=== PATIENT | female | born 1995 | race Native Hawaiian/Other Pacific Islander ===

== ENCOUNTER 2017-11-10 11:05 | Emergency (ER) | payer SELFPAY ==
[2017-11-10 11:17] VITALS: BP 127/89
[2017-11-10 11:52] LABS: Bacteria,Urine 1+ /HPF (Negative); Bilirubin,Urine NEG (Negative); Blood,Urine NEG (Negative); Color,Urine Yellow (Yellow); Mucus,Urine FEW /HPF; Protein,Urine <15 mg/dL mg/dL (Negative); Urobilinogen,Urine < 2.0 mg/dL (<2.0); WBC,Urine < 1.0 /HPF (0.0-6.0)
--- NOTE | 2017-11-10 12:08 | Emergency Department Report ---
ED Female HPI - General Chief complaint: Urogenital-Female Stated complaint: ABDOMINAL PAIN- 16WEEKS Time Seen by Provider: 11/10/17 12:08 Source: patient, family, vp celebrity services Mode of arrival: Wheelchair Limitations: Language Barrier - History of Present Illness Initial comments: Interpretive service Patient presents to emergency department with the chief complaint wore abdominal pain that started this morning. The patient's approximate 16 weeks and is . Patient has no obstetrics care currently. Patient does endorse vaginal discharge that is odorous but denies concern for STDs. Patient denies any vaginal bleeding. Pain is inattentive pelvic area. Pain is intermittent. Denies any vaginal bleeding reports whitish. Discharge and has no concerns for STD. Patient says clinic in [place] confirmed her and she has records with her. She also states that she was having some nausea with some vomiting that has resolved. MD Complaint: vaginal discharge, pelvic pain -: This morning Location: suprapubic Radiation: non-radiating Severity: severe Severity scale (0 -10): 8 Quality: aching Consistency: intermittent Improves with: none Worsens with: none Are you Now?: Yes (16 weeks) Associated Symptoms: vaginal discharge, abdominal pain, nausea/vomiting. denies : vaginal bleeding, fever/chills, headaches, loss of appetite, dysuria, hematuria, rash, seizure, shortness of breath, syncope, weakness - Related Data Sexually active: Yes Previous Rx's Medication Instructions Recorded Last Taken Type Miconazole Nitrate [Monistat 3] 1 each VG QHS 3 Days #1 kit 11/10/17 Unknown Rx Vit No.130/Iron/Folic 1 each PO QAM 30 Days #30 tablet 11/10/17 Unknown Rx [ Tablet] metroNIDAZOLE [Flagyl] 500 mg PO Q12HR 7 Days #14 tab 11/10/17 Unknown Rx Allergies Allergy/AdvReac Type Severity Reaction Status Date / Time No Known Allergies Allergy Unverified 11/10/17 11:16 ED Review of Systems ROS: Stated complaint: ABDOMINAL PAIN- 16WEEKS Other details as noted in HPI Constitutional: denies: chills, fever Eyes: denies: eye pain, eye discharge, vision change ENT: denies: ear pain, throat pain Respiratory: denies: cough, shortness of breath, wheezing Cardiovascular: denies: chest pain, palpitations Endocrine: no symptoms reported Gastrointestinal: denies: abdominal pain, nausea, diarrhea Genitourinary: denies: urgency, dysuria, discharge Musculoskeletal: denies: back pain, joint swelling, arthralgia Skin: denies: rash, lesions Neurological: denies: headache, weakness, paresthesias Psychiatric: denies: anxiety, depression Hematological/Lymphatic: denies: easy bleeding, easy bruising ED Past Medical Hx - Past Medical History Previous Medical History?: Yes Additional medical history: hypotension - Surgical History Past Surgical History?: Yes Additional Surgical History: x1 - Family History Family history: hypertension - Social History Smoking Status: Never Smoker Substance Use Type: None - Medications Home Medications: Home Medications Medication Instructions Recorded Confirmed Last Taken Type Miconazole Nitrate [Monistat 3] 1 each VG QHS 3 Days #1 kit 11/10/17 Unknown Rx Vit No.130/Iron/Folic 1 each PO QAM 30 Days #30 tablet 11/10/17 Unknown Rx [ Tablet] metroNIDAZOLE [Flagyl] 500 mg PO Q12HR 7 Days #14 tab 11/10/17 Unknown Rx ED Physical Exam - General Limitations: Language Barrier General appearance: alert, in no apparent distress - Head Head exam: Present: atraumatic, normocephalic, normal inspection - Eye Eye exam: Present: normal appearance, PERRL, EOMI - ENT ENT exam: Present: normal exam, normal orophraynx, mucous membranes moist, TM's normal bilaterally, normal external ear exam - Neck Neck exam: Present: normal inspection, full ROM. Absent: tenderness, lymphadenopathy - Respiratory Respiratory exam: Present: normal lung sounds bilaterally. Absent: respiratory distress, chest wall tenderness - Cardiovascular Cardiovascular Exam: Present: normal rhythm, tachycardia, normal heart sounds. Absent: systolic murmur, diastolic murmur - GI/Abdominal GI/Abdominal exam: Present: soft, normal bowel sounds. Absent: distended, tenderness, guarding, rebound, rigid, organomegaly, mass, bruit, pulsatile mass - External exam: Present: normal external exam. Absent: erythema, swelling, lesions, lacerations, ecchymosis, bleeding Speculum exam: Present: vaginal discharge, cervical discharge. Absent: normal speculum exam, erythema, vaginal bleeding, foreign body, tissue, laceration Bi-manual exam: Present: normal bi-manual exam. Absent: cervical motion tendernes - Extremities Exam Extremities exam: Present: normal inspection, full ROM, normal capillary refill , other (No cce. + 2 pulses in all extremities, no neurovascular compromise). Absent: tenderness, pedal edema, joint swelling, calf tenderness - Back Exam Back exam: Present: normal inspection, full ROM, other (ambulates without any difficulties). Absent: tenderness, CVA tenderness (R), CVA tenderness (L), muscle spasm, paraspinal tenderness, vertebral tenderness, rash noted - Neurological Exam Neurological exam: Present: alert, oriented X3, normal gait - Psychiatric Psychiatric exam: Present: normal affect, normal mood - Skin Skin exam: Present: warm, dry, intact, normal color. Absent: rash ED Course Vital Signs 11/10/17 11/10/17 11:14 14:48 Temperature 98.2 F Pulse Rate 102 H 82 Respiratory 18 Rate Blood Pressure 127/89 O2 Sat by Pulse 100 Oximetry - Reevaluation(s) Reevaluation #1: 11/12/17 07:27 Patient had uneventful ED stay ED Medical Decision Making - Lab Data Result diagrams: 11/10/17 12:47 11/10/17 12:47 Lab Results 11/10/17 11/10/17 11/10/17 Range/Units 11:13 12:47 12:47 WBC 7.5 (4.5-11.0) K/mm3 RBC 3.44 L (3.65-5.03) M/mm3 Hgb 10.5 (10.1-14.3) gm/dl Hct 31.2 (30.3-42.9) % MCV 91 (79-97) fl MCH 31 (28-32) pg MCHC 34 (30-34) % RDW 13.5 (13.2-15.2) % Plt Count 271 (140-440) K/mm3 Lymph % (Auto) 17.8 (13.4-35.0) % Brown % (Auto) 5.0 (0.0-7.3) % Eos % (Auto) 2.7 (0.0-4.3) % Baso % (Auto) 0.5 (0.0-1.8) % Lymph # 1.3 (1.2-5.4) K/mm3 Brown # 0.4 (0.0-0.8) K/mm3 Eos # 0.2 (0.0-0.4) K/mm3 Baso # 0.0 (0.0-0.1) K/mm3 Seg Neutrophils % 74.0 H (40.0-70.0) % Seg Neutrophils # 5.6 (1.8-7.7) K/mm3 Sodium 136 L (137-145) mmol/L Potassium 3.8 (3.6-5.0) mmol/L Chloride 103.4 (98-107) mmol/L Carbon Dioxide 22 (22-30) mmol/L Anion Gap 14 mmol/L BUN 6 L (7-17) mg/dL Creatinine 0.4 L (0.7-1.2) mg/dL Estimated GFR > 60 ml/min BUN/Creatinine Ratio 15 % Glucose 80 (65-100) mg/dL Calcium 9.3 (8.4-10.2) mg/dL HCG, Qual (Negative) HCG, Quant (0-4) mIU/mL Urine Color Yellow (Yellow) Urine Turbidity Slightly-cloudy (Clear) Urine pH 7.0 (5.0-7.0) Ur Specific [place] 1.017 (1.003-1.030) Urine Protein <15 mg/dl (Negative) mg/dL Urine Glucose (UA) Neg (Negative) mg/dL Urine Ketones Neg (Negative) mg/dL Urine Blood Neg (Negative) Urine Nitrite Neg (Negative) Urine Bilirubin Neg (Negative) Urine Urobilinogen < 2.0 (<2.0) mg/dL Ur Leukocyte Esterase Neg (Negative) Urine WBC (Auto) < 1.0 (0.0-6.0) /HPF Urine RBC (Auto) 1.0 (0.0-6.0) /HPF U Epithel Cells (Auto) 5.0 (0-13.0) /HPF Urine Bacteria (Auto) 1+ (Negative) /HPF Urine Mucus Few /HPF 11/10/17 11/10/17 Range/Units 12:47 12:47 WBC (4.5-11.0) K/mm3 RBC (3.65-5.03) M/mm3 Hgb (10.1-14.3) gm/dl Hct (30.3-42.9) % MCV (79-97) fl MCH (28-32) pg MCHC (30-34) % RDW (13.2-15.2) % Plt Count (140-440) K/mm3 Lymph % (Auto) (13.4-35.0) % Brown % (Auto) (0.0-7.3) % Eos % (Auto) (0.0-4.3) % Baso % (Auto) (0.0-1.8) % Lymph # (1.2-5.4) K/mm3 Brown # (0.0-0.8) K/mm3 Eos # (0.0-0.4) K/mm3 Baso # (0.0-0.1) K/mm3 Seg Neutrophils % (40.0-70.0) % Seg Neutrophils # (1.8-7.7) K/mm3 Sodium (137-145) mmol/L Potassium (3.6-5.0) mmol/L Chloride (98-107) mmol/L Carbon Dioxide (22-30) mmol/L Anion Gap mmol/L BUN (7-17) mg/dL Creatinine (0.7-1.2) mg/dL Estimated GFR ml/min BUN/Creatinine Ratio % Glucose (65-100) mg/dL Calcium (8.4-10.2) mg/dL HCG, Qual Positive (Negative) HCG, Quant 8696 H (0-4) mIU/mL Urine Color (Yellow) Urine Turbidity (Clear) Urine pH (5.0-7.0) Ur Specific [place] (1.003-1.030) Urine Protein (Negative) mg/dL Urine Glucose (UA) (Negative) mg/dL Urine Ketones (Negative) mg/dL Urine Blood (Negative) Urine Nitrite (Negative) Urine Bilirubin (Negative) Urine Urobilinogen (<2.0) mg/dL Ur Leukocyte Esterase (Negative) Urine WBC (Auto) (0.0-6.0) /HPF Urine RBC (Auto) (0.0-6.0) /HPF U Epithel Cells (Auto) (0-13.0) /HPF Urine Bacteria (Auto) (Negative) /HPF Urine Mucus /HPF Wet prep shows rare yeast Less than 20% cell No Trichomonas Urine culture sent - Radiology Data Radiology results: report reviewed Patient: RAMONE LAW MR#: [id number] : 1995 Acct:[id number] Age/Sex: 22 / F ADM Date: 11/10/17 Loc: ED Attending Dr: Ordering Physician: LEIDY JAVIER Date of Service: 11/10/17 Procedure(s): US OB >= 14 weeks Fetus Accession Number(s): [id number] cc: LEIDY JAVIER OB ULTRASOUND History abdominal pain in . Technique: Transabdominal ultrasound with Doppler interrogation. Gestation: Single Position: Cephalic Amniotic Fluid: Normal Placenta: Fundal Placental Grade: 0 Heart Rate: 145 BPM Cervical length: 4.9 cm (Normal > 3 cm) NEUROANATOMY VISUALIZED: Choroid Plexus Lateral Ventricle ANATOMY VISUALIZED: Stomach Kidneys Bladder Diaphragm 4 Chamber Heart Heart 3 Vessel Cord Abd. Cord Insert SPINE VISUALIZED: Longitudinal Transverse The following are not demonstrated due to maternal body habitus or lie: Cisterna magna, cerebellum BPD: 4.6 cm = 19 w 6 d HC: 18.6 cm = 21 w 0 d AC: 15.9 cm = 21 w 0 d FL: 3.4 cm = 20 w 5 d HC/AC Ratio: 1.17 Cephalic Index: 70.0 Estimated Weight: 382 grams LMP: Unknown Clinical age = w d EDC: US Gest. Age = 20 w 5 d EDC: 03/25/18 IMPRESSION: Viable, single intrauterine as described. Transcribed By: TTR Dictated By: RAFAEL ZARAGOZA JR, MD Electronically Authenticated By: RAFAEL ZARAGOZA JR, MD Signed Date/Time: 11/10/171436 DD/ 33 TD/TT: 11/10/171436 - Medical Decision Making Stripe Matcher present This is a 22-year-old female here reports that she is having abdominal cramping and she is . She denies any vaginal bleeding and reports some vaginal discharge. Patient was screened by Dr. Miles and/or lily and physical exam done by myself which showed negative findings except for a pelvic exam with scant amount of discharge with no CMT or adnexal tenderness. Patient's CBC stable BMP is stable. Her urinalysis showed trace leukocyte esterase with 1+ bacteria. Urine culture sent. Patient wet prep Positive for bacterial vaginosis. Negative Trichomonas and trace yeast. Ultrasound abdominal OB revealed patient positive IUP with positive heart tone and no abnormalities. I discussed results of ultrasound and laboratory patient and she voiced understanding. Patient with UTI and will be treated with Macrobid for 3 days, started on vitamin and referred to [facility]. Started on Flagyl for bacterial vaginosis and Monistat 3 for yeast infection. She understands that she needs to go to [facility] for follow-up and/or to return to the emergency room if she starts having vaginal bleed and an increase in abdominal pain and she voiced understanding. Patient discharged home in stable condition with her family. Vital signs are stable and she is afebrile. Critical care attestation.: If time is entered above; I have spent that time in minutes in the direct care of this critically ill patient, excluding procedure time. ED Disposition Clinical Impression: Pelvic pain during in second trimester, antepartum, Bacterial vaginosis Vaginal discharge during Qualifiers: Trimester: second trimester Qualified Code(s): O26.892 - Other specified related conditions, second trimester Disposition: TO HOME OR SELFCARE Is pt being admited?: No Does the pt Need Aspirin: No Condition: Stable Instructions: (ED), Bacterial Vaginosis (ED), Acute Nausea and Vomiting (ED), Abdominal Pain in (ED) Additional Instructions: Please follow up with outside Medical Center for [facility] care within the next 2 days. Take vitamin daily Your ultrasound shows normal Increasing fluid intake If you develop, vaginal bleeding, increase in abdominal pain, continuous nausea and her vomiting, please return to the emergency room. Realice un seguimiento con un centro mdico externo para atencin obsttrica / ginecolgica dentro de los prximos 2 leo. Reader vitamina todos los leo Silvestre ultrasonido muestra un embarazo normal Aumentar la ingesta de lquidos Si se desarrolla, sangrado vaginal, aumento del dolor abdominal, nuseas continuas y vmitos, regrese a la benoit de emergencias. Prescriptions: Miconazole Nitrate [Monistat 3] 1 each VG QHS 3 Days #1 kit metroNIDAZOLE [Flagyl] 500 mg PO Q12HR 7 Days #14 tab Vit No.130/Iron/Folic [ Tablet] 1 each PO QAM 30 Days #30 tablet Referrals: [facility] [Outside] - 11/12/17 RAFAEL GAR MD [Staff Physician] - 11/12/17 PRIMARY CAREMD [Primary Care Provider] - 11/12/17 Forms: Work/School Release Form(ED), STI Treatment and Prevention Print Language: AMERICAN
--- NOTE | 2017-11-10 12:11 | Emergency Department Report ---
Blank Doc - Documentation Documentation: Patient presents to emergency department with the chief complaint wore abdominal pain that started this morning. The patient's approximate 16 weeks and is . Patient has no obstetrics care currently. Patient does endorse vaginal discharge that is odorous but denies concern for STDs. Patient denies any vaginal bleeding. There was a language barrier and Mrs. Dawkins interpret for encounter. Plan will be for the patient to have a pelvic exam and ultrasound. Care has been turned over to the mid-level Provider with consultation available by me if needed
[2017-11-10 13:00] LABS: Basophils % (Auto) 0.5 % (0.0-1.8); Eosinophils # (Auto) 0.2 K/mm3 (0.0-0.4); Eosinophils % (Auto) 2.7 % (0.0-4.3); Hematocrit 31.2 % (30.3-42.9); Hemoglobin 10.5 gm/dl (10.1-14.3); Lymphocytes # (Auto) 1.3 K/mm3 (1.2-5.4); Lymphocytes % (Auto) 17.8 % (13.4-35.0); Mean Corpuscular HGB Conc 34 % (30-34); Mean Corpuscular Hemoglobin 31 pg (28-32); Mean Corpuscular Volume 91 fl (79-97); Monocytes # (Auto) 0.4 K/mm3 (0.0-0.8); Platelet Count 271 K/mm3 (140-440); Red Blood Count 3.44 M/mm3 (3.65-5.03); Red Cell Distribution Width 13.5 % (13.2-15.2)
[2017-11-10 13:15] LABS: BUN/Creatinine Ratio 15; Blood Urea Nitrogen 6 mg/dL (7-17); Calcium 9.3 mg/dL (8.4-10.2); Hemolysis Index 27
--- NOTE | 2017-11-10 14:38 | Ultrasound Report ---
OB ULTRASOUND History abdominal pain in . Technique: Transabdominal ultrasound with Doppler interrogation. Gestation: Single Position: Cephalic Amniotic Fluid: Normal Placenta: Fundal Placental Grade: 0 Heart Rate: 145 BPM Cervical length: 4.9 cm (Normal > 3 cm) NEUROANATOMY VISUALIZED: Choroid Plexus Lateral Ventricle ANATOMY VISUALIZED: Stomach Kidneys Bladder Diaphragm 4 Chamber Heart Heart 3 Vessel Cord Abd. Cord Insert SPINE VISUALIZED: Longitudinal Transverse The following are not demonstrated due to maternal body habitus or lie: Cisterna magna, cerebellum BPD: 4.6 cm = 19 w 6 d HC: 18.6 cm = 21 w 0 d AC: 15.9 cm = 21 w 0 d FL: 3.4 cm = 20 w 5 d HC/AC Ratio: 1.17 Cephalic Index: 70.0 Estimated Weight: 382 grams LMP: Unknown Clinical age = w d EDC: US Gest. Age = 20 w 5 d EDC: 03/25/18 IMPRESSION: Viable, single intrauterine as described.
== END 2017-11-10 15:30 | disposition home or self-care (01) ==
LOC: ED 11:05
DX: O26.892 Other specified pregnancy related conditions, second trimester (principal); N76.0 Acute vaginitis; B96.89 Other specified bacterial agents as the cause of diseases classified elsewhere; R10.2 Pelvic and perineal pain; Z79.899 Other long term (current) drug therapy; Z3A.16 16 weeks gestation of pregnancy
CPT/HCPCS: 36415; 76805; 80048; 81001; 84702; 84703; 85025; 87210; 87591